=== PATIENT | male | born 2000 | race Caucasian/White ===

== ENCOUNTER 2022-01-20 13:02 | Outpatient (REF) | payer BC, SELFPAY ==
[2022-01-20 20:36] LABS: Bilirubin Negative (Negative); Blood Negative (Negative); Clarity Clear (Clear); Glucose Negative (Negative); Ketones Negative (Negative); Leukocyte Esterase Negative (Negative); Nitrite Negative (Negative); Urobilinogen 0.2 EU/dL (Up TO 0.2); pH 6.5 (5-8)
[2022-01-22 13:46] LABS: Chlamydia Result Negative (Negative); GC Result Negative (Negative)
== END 2022-01-20 13:03 | disposition home or self-care (01) ==
LOC: NCHCN 13:02
PROVIDERS: Visit Provider Physician Assistant
DX: N48.89 Other specified disorders of penis; R39.89 Other symptoms and signs involving the genitourinary system
CPT/HCPCS: 87491; 87591; 81003